=== PATIENT | male | born 2000 | race Hispanic/Latino ===

== ENCOUNTER 2018-02-25 20:54 | Emergency (ER) | payer SELFPAY ==
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
== END 2018-02-25 23:41 | disposition home or self-care (01) ==
LOC: ER 20:54
DX: S80.12XA Contusion of left lower leg, initial encounter (principal); V59.49XA Driver of pick-up truck or van injured in collision with other motor vehicles in traffic accident, initial encounter
CPT/HCPCS: 99284